=== PATIENT | female | born 1945 | race Caucasian/White ===

== ENCOUNTER 2017-02-19 09:16 | Emergency (ER) | payer OTHER ==
[~2017-02-19] VITALS: Ht 167.6 cm; Wt 85.9 kg
--- NOTE | 2017-02-19 09:18 | ED.REPORT ---
HPI-Trauma Minor / Fall Date of Service Feb 19, 2017 ED Provider: Erica Brito MD The pt is a 72 y/o female presenting to the ED via EMS due to a ground level fall. Per EMS, She was walking around the pool and tripped on a mat and fell forward onto her face but there was no LOC and only slight dizziness after the fall. She chose not to use her arms to cushion the fall due to past shoulder problems. She has a upper lip laceration, a headache which she rates w/ an intensity of 6/10, and a minor hematoma on her R knee. Nursing Notes Stated Complaint: GROUND LEVEL FALL Chief Complaint: Ground level fall Nursing Notes Reviewed: Yes Allergies: Coded Allergies: hydromorphone (Verified Allergy, Unknown, 02/19/17) morphine (Verified Allergy, Unknown, 02/19/17) Scheduled Ondansetron (Ondansetron) 4 Mg Tablet 4 MG PO TID General Time Seen by MD: 09:17 Chief Complaint Fall Hx Obtained From: Patient, EMS Arrived By: Ambulance Onset Occurred: Just prior to arrival Symptom Duration: Since onset Recent Healthcare: No recent hospitalization, Recent doctor visit Similar Sx Previous: No Past Medical History Past Medical History Ovarian cancer (32 years ago) Past Surgical History L knee and R femur surgery Smoking History Unknown if Ever Smoker Ambulatory Status Independent Review of Systems Upper lip laceration Skin: Reports Bruising (R knee ) Neurologic: Reports: Dizziness, Headache Complete sys rev & neg: except as marked. Physical Exam Initial Vital Signs Vital Signs (First) Date Time Temp Pulse Resp B/P Pulse Ox O2 Delivery O2 Flow Rate FiO2 02/19/17 09:22 36.6 109 18 146/89 100 02/19/17 12:07 Room Air Initial VS: Reviewed General/Constitutional: Awake, Alert Neck: Supple, No masses Tenderness at C4 central Head / Eyes: Normocephalic, No photophobia Tenderness over nasal bridge Tenderness over maxilla bilat Fullness of upper lip Midline laceration of the inner portion of the upper lip that does not cross beryllium border ENT: Atraumatic, Airway patent Respiratory / Chest: Atraumatic, Breath sounds NL, Breath sounds = bilat, No respiratory distress, No rales, No rhonchi, No wheezing Cardiovascular: Heart rate NL, Regular rhythm, Heart sounds NL Lower Extremity / Pelvis / MS: Full range of motion, Neurologic intact, Vascular intact No pelvic tenderness Skin: Color NL, No rash, Warm, Dry Hematomas on R knee and along ulnar surface of L hand Interpretation & Diagnostics CT Head Interpretation IMPRESSION: 1. No acute intracranial abnormalities. 2. Cerebral volume loss and chronic microvascular ischemic changes. 3. An air fluid level in the left maxillary sinus suggests sinusitis. Dictated by: Shira Shelton M.D. on 02/19/2017 at 9:59 Approved by: Shira Shelton M.D. on 02/19/2017 at 10:02 Study: Head CT no contrast Interpretation / Wet Read by: Interpret - Radiologist CT C-Spine Interpretation IMPRESSION: 1. No fracture in cervical spine. 2. Degenerative disc disease and uncovertebral hypertrophy at C5-C6 and C6-C7. 3. Severe atlantoaxial joint degeneration. 4. Osteopenia. 5. Concentric thickening of the esophagus. Further evaluation with esophagram or upper endoscopy suggested. 6. Emphysema. 7. A 2 mm right upper lobe lung nodule. Please see followup recommendation. Fleischner Society criteria for SOLID lung nodule followup. Nodule size (mm)Low-risk patientHigh-risk [id number] follow-up neededFollow-up at 12 mo; if no change, no further follow-up>2-0Ebivfw-wk CT at 12 mo; if no change, no further follow-up needed.Initial follow-up CT at 6-12 mo, then 18-24 mo if no change. >6-8Initial follow-up CT at 6-12 mo, then 18-24 mo if no change. Initial follow-up CT at 3-6 mo, then 9-12 mo and 24 mo if no change. >8Follow-up CT at 3, 9, 24 mo. Or PET and/or biopsy.Same as for low-risk pts. Dictated by: Shira Shelton M.D. on 02/19/2017 at 10:02 Approved by: Shira Shelton M.D. on 02/19/2017 at 10:08 Study type: CT no contrast Interpretation / Wet Read by: Interpret - Radiologist Procedures Laceration Management Procedure Performed by: ED physician Consent / Setup / Site Prep: Consent from patient Location of Wound: upper lip Wound Length: 2 cm Local Anesthesia: Bupivacaine 0.5% Wound Preparation: Normal saline Debridement: Minimal Irrigation: 50 cc Foreign Body Explore / Removal: Explored for foreign body # Sutures - Skin: 1 (subcuticular with 5.0 absorbably gut on infereolingual surface of upper lip) # Sutures - SubQ: 1 (horizontal mattress to close orbicularis muscle. good asthetics) Closure Layers: 2 Re-Eval/Medical Decision Source of Hx: Old records Re-Evaluation/Progress #1: Time of Eval: 10:49 Re-Evaluation/Progress Note: Rechecked pt. Pt is feeling well. Discussed plan to suture upper lip. Re-Evaluation/Progress #2: Time of Eval: 11:51 Re-Evaluation/Progress Note: Performed laceration repair to upper lip. Counseled Regarding: Diagnosis, Lab results, Need for follow-up, When/why to return to ED Discharge & Departure Impression: Primary Impression: Fall Encounter type: initial encounter Qualified Code: W19.XXXA - Unspecified fall, initial encounter Additional Impressions: Lip laceration Encounter type: initial encounter Qualified Code: S01.511A - Laceration without foreign body of lip, initial encounter Esophageal thickening Incidental pulmonary nodule Concussion Encounter type: initial encounter Loss of consciousness presence/duration: without LOC Qualified Code: S06.0X0A - Concussion without loss of consciousness, initial encounter Ruled Out: Intracranial hemorrhage, Spinal fracture Disposition: Home Discharge Condition All VS Reviewed: Yes Condition: Stable Additional Instructions: Thank you for coming into the emergency department today. Your CT scan showed that there was no bleeding in your brain and no fractures to your neck. I sutured your lip. The suture will dissolve in 1-2 weeks. If you notice a bitty piece coming out/off, don't worry about that. Try to avoid crumbly foods and eat only cold, solid foods for the next 24 hours to make sure your lip heals properly and avoid getting any crumbs in the wound. You may also want to consider using a straw when you drink fluids until your hip heals. Do use some kind of lubricant on your lip to aid with the process. I prescribed you some anti-nausea medication which you may take as needed for nausea due to your concussion. Expect some dizziness, headache, nausea for a couple of days. the medicine has been electronically transmitted to [facility] for you today. You can go back to water aerobics when you feel well enough. You did get a tetanus/diptheria/pertussis shot today. You should be good for 10 years:) I hope you feel better soon. Referrals: [facility] (PCP) [facility] Attestation Portions of this note were transcribed by Roland Infante. I, Dr. Brito personally performed the history, physical exam and medical decision-making; I reviewed and confirmed the accuracy of the information in the transcribed note. Signed by : Desiree Martinez, 02/19/17 and 1030. copies to: [facility] Erica Brito MD Feb 19, 2017 09:18 Roland Infante Feb 19, 2017 10:05
[2017-02-19 09:22] VITALS: BP 146/89; PULSE 109; RESP 18; O2SAT 100
--- NOTE | 2017-02-19 10:04 | DRSVH ---
PROCEDURE: CT BRAIN WITHOUT CONTRAST ([id number]) INDICATIONS: 72 year-old woman with head trauma. TECHNIQUE: Noncontrast 4.5 mm thick angled axial sections acquired from the foramen magnum to the vertex, with c oronal reformats. COMPARISON: None. FINDINGS: Image quality: Excellent. CSF spaces: Basal cisterns are patent. No extra-axial fluid collections. The ventricles are symmet alvin in size and shape. Brain: No intracranial bleeds or masses. There is cerebral volume loss for age, with resultant vent ricular and sulcal prominence. There are periventricular and deep white matter chronic small vessel ischemic changes. There is intracranial internal carotid artery atherosclerosis. Skull and face: Calvarium and visualized facial bones appear intact, without suspicious lesions. Fr ontal soft tissue swelling consistent with contusion. Sinuses: There is an air-fluid level in the left maxillary sinus. The mastoids are clear. IMPRESSION: 1. No acute intracranial abnormalities. 2. Cerebral volume loss and chronic microvascular ischemic changes. 3. An air fluid level in the left maxillary sinus suggests sinusitis. Dictated by: Shira Shelton M.D. on 02/19/2017 at 9:59 Approved by: Shira Shelton M.D. on 02/19/2017 at 10:02
--- NOTE | 2017-02-19 10:10 | DRSVH ---
PROCEDURE: CT CERVICAL SPINE WITHOUT CONTRAST ([id number]) INDICATIONS: 72 year-old woman with trauma. TECHNIQUE: Noncontrast 3 mm thick sections acquired from the skull base to the T4 level. Sagittal and coronal r eformats were then constructed. For radiation dose reduction, the following was used: automated exp osure control, adjustment of mA and/or kV according to patient size. COMPARISON: None. FINDINGS: Image quality: Excellent. Bones: No fractures or dislocations. Visualized superior ribs are intact. There is severe atlantoa xial joint degeneration. Degenerative disc disease is present, moderate to severe C5-C6 and C6-C7. Th ere is uncovertebral hypertrophy at C5-C6 and C6-C7. There is osteopenia. Soft tissues: Prevertebral soft tissues are normal in thickness. No paravertebral hematomas. No ap ical pneumothoraces. There is concentric esophageal wall thickening. There is moderate emphysema. A 2 mm nodule is seen in the right upper lobe. IMPRESSION: 1. No fracture in cervical spine. 2. Degenerative disc disease and uncovertebral hypertrophy at C5-C6 and C6-C7. 3. Severe atlantoaxial joint degeneration. 4. Osteopenia. 5. Concentric thickening of the esophagus. Further evaluation with esophagram or upper endoscopy sug gested. 6. Emphysema. 7. A 2 mm right upper lobe lung nodule. Please see followup recommendation. Fleischner Society criteria for SOLID lung nodule followup. Nodule size (mm)Low-risk patientHigh-risk [id number] follow-up neededFollow-up at 12 mo; if no contreras e, no further follow-up>9-4Icukht-en CT at 12 mo; if no change, no further follow-up needed.Initial f ollow-up CT at 6-12 mo, then 18-24 mo if no change. >6-8Initial follow-up CT at 6-12 mo, then 18-24 mo if no change. Initial follow-up CT at 3-6 mo, then 9-12 mo and 24 mo if no change. >8Follow-up CT at 3, 9, 24 mo. Or PET and/or biopsy.Same as for low-risk pts. Dictated by: Shira Shelton M.D. on 02/19/2017 at 10:02 Approved by: Shira Shelton M.D. on 02/19/2017 at 10:08
[2017-02-19] MEDS ORDERED: TdaP Vaccine 0.5 mL Inj IM ONE (11:55)
[2017-02-19 12:07] VITALS: BP 131/86; PULSE 106; RESP 18; O2SAT 96
[2017-02-19] MEDS ORDERED: ONDA-53 PO (12:09)
[2017-02-19 12:15] VITALS: BP 131/86; PULSE 106; RESP 18; O2SAT 96
== END 2017-02-19 12:15 | disposition home or self-care (01) ==
LOC: SED 09:16
DX: S06.0X0A Concussion without loss of consciousness, initial encounter (principal); S80.01XA Contusion of right knee, initial encounter; S60.222A Contusion of left hand, initial encounter; S01.511A Laceration without foreign body of lip, initial encounter; K22.9 Disease of esophagus, unspecified; R91.1 Solitary pulmonary nodule; W01.0XXA Fall on same level from slipping, tripping and stumbling without subsequent striking against object, initial encounter; Y93.01 Activity, walking, marching and hiking; Y99.8 Other external cause status; Y92.34 Swimming pool (public) as the place of occurrence of the external cause; Z85.43 Personal history of malignant neoplasm of ovary; Z23 Encounter for immunization; Z88.5 Allergy status to narcotic agent